=== PATIENT | female | born 1995 | race Caucasian/White ===

== ENCOUNTER 2017-03-21 15:56 | Outpatient (CLI) | payer MEDICAID ==
[~2017-03-21] VITALS: Ht 157.5 cm; Wt 78.0 kg
[2017-03-21 17:01] VITALS: BP 107/53; PULSE 67; RESP 20
[2017-03-21 17:10] VITALS: Ht 157.5 cm; Wt 78.0 kg
[2017-03-21] MEDS ORDERED: PRENAT PO (18:04)
[2017-03-21] MEDS ORDERED: METH-58 PO (18:12)
[2017-03-21] MEDS ORDERED: METH250T PO (18:12)
[2017-03-21 19:54] LABS: ADD UMIC YES; UR BILIRUBIN (Dip) 1+ (NEGATIVE); UR BLOOD (Dip) 3+ (NEGATIVE); UR CLARITY SLIGHTLY CLOUDY (CLEAR); UR COLOR YELLOW (YELLOW); UR GLUCOSE (Dip) NEGATIVE (NEGATIVE); UR KETONES (Dip) NEGATIVE (NEGATIVE); UR LEUKOCYTE ESTERASE (Dip) TRACE (NEGATIVE); UR NITRITE (Dip) NEGATIVE (NEGATIVE); UR TOTAL PROTEIN (Dip) TRACE (NEGATIVE); UR UROBILINOGEN (Dip) 0.2 E.U./dL (0.1-1.0)
--- NOTE | 2017-03-21 19:55 | TRIAGE ---
OB Triage Datetime Report Generated by CPN: 03/21/2017 19:55 Datetime: 03/21/2017 17:45 Stage of : OB Triage Maternal Assessment Level of Consciousness: Fully Conscious Headache: Denies Nausea/Vomiting: Denies RUQ Epigastric Pain: Denies Labor Evaluation Frequency: IRRIT Monitor Mode: External Duration (sec)2399: 5 SEC Quality: Mild Resting Tone [place]: Relaxed Heart Rate Monitor Mode: External US FHR Baseline Changes: No Baseline Change Variability: Moderate 6-25 bpm Accelerations: 15X15 Decelerations: None Category: Category I Pain Assessment Pain Scale: 3 Pain Presence: Constant Pain Type: Ache Pain Location: Abdomen Vaginal Exam Dilatation (cms): 0.0 Exam By: DR FOROOHAR Membrane Status: Intact Vaginal Bleeding: None Datetime: 03/21/2017 17:12 EGA: 29.6 Datetime: 03/21/2017 17:00 Time of Arrival: 03/21/2017 17:00 Arrived By: Ambulatory Arrived From: Home Chief Complaint: C/O CONSTANT LOW ABD PAIN SINCE 1300 PT COMING FROM WORK Movement: Present Rupture of Membranes: Denies Vaginal Bleeding: None Vaginal Discharge: Denies Recent Sexual Intercouse: Denies Abdominal Trauma: Not Applicable Patient Complaints: Other Provider Notified: KAILA Initial Plan: NST Maternal Assessment Level of Consciousness: Fully Conscious DTR's/Clonus: DTRs 2+ Headache: Denies Blurred Vision: No Nausea/Vomiting: Denies RUQ Epigastric Pain: Denies Facial Edema: None Labor Evaluation Frequency: IRRIT Monitor Mode: External Duration (sec)2399: 5 SEC Quality: Mild Resting Tone [place]: Relaxed Heart Rate Monitor Mode: External US FHR Baseline Changes: No Baseline Change Variability: Moderate 6-25 bpm Accelerations: 15X15 Decelerations: None Category: Category I Pain Assessment Pain Scale: 9 Pain Presence: Constant Pain Type: Ache Pain Location: Abdomen Membrane Status: Intact
[2017-03-21 20:28] LABS: ICTOTEST NEGATIVE (NEGATIVE)
[2017-03-21 20:30] LABS: UR BACTERIA FEW; UR SQUAMOUS EPITHELIAL CELL FEW
--- NOTE | 2017-03-21 21:53 | CONS ---
Date/Time of Note Date/Time of Note DATE: 03/21/17 TIME: 21:46 Consultation Date/Type/Reason Admit Date/Time March 21, 2007 Triage consult note Reason for Consultation This woman is a 21 years old 1 para 0 whose estimated date of confinement is May 31, 2017 which makes her 29 weeks and 6 days now she came to triage area complaining of lower abdominal pain Basically to rule out labor . she had a diagnosis of cholestasis made in the clinic and was placed in [facility] 3 times daily on examination her general vital signs were normal with blood pressure 107/53, pulse rate 67, respiration 20, and temperature 98.2 heart rate was about 125 Her complaint involves mostly lower abdominal pain Laboratory Tests Test 03/21/17 18:30 Urine Color YELLOW Urine Clarity SLIGHTLY CLOUDY Urine pH 5.5 Urine Specific [place] 1.025 Urine Ketones NEGATIVE Urine Nitrite NEGATIVE Urine Bilirubin 1+ Urine Ictotest NEGATIVE Urine Urobilinogen 0.2 E.U./dL Urine Leukocyte Esterase TRACE Urine Microscopic RBC 10-25/HPF Urine Microscopic WBC 2-5/HPF Urine Squamous Epithelial Cells FEW Urine Calcium Oxalate Crystals MODERATE Urine Bacteria FEW Urine Hemoglobin 3+ Urine Glucose NEGATIVE% Urine Total Protein TRACE Constitutional: No chills, No diaphoresis, No disoriented, No febrile, No improved, No no complaints, No other, No poor po, No requiring IVF, No requiring O2 Eyes: No discharge, No no complaints, No other, No pain, No redness, No visual change ENT: No bleeding, No congestion, No discharge, No dysphagia, No no complaints, No other, No pain, No sore throat Respiratory: No cough, No no complaints, No other, No pain, No pleuritic pain, No shortness of breath, No sputum, No wheezing Cardiovascular: No chest pain, No edema, No lightheadedness, No no complaints, No orthopenea, No other, No palpitations, No paroxysmal nocturnal dyspnea Gastrointestinal: No blood, No constipation, No decreased appetite, No diarrhea , No flatus, No nausea, No no complaints, No other, No pain, No passing stool, No vomiting Genitourinary: other (Pelvic examination her cervix was closed long and thick no evidence of rupture of membrane), No bleeding, No discharge, No dysuria, No flank pain, No hematuria, No no complaints Musculoskeletal: No back pain, No bone/joint pain, No neck pain, No no complaints, No other, No restricted range of motion, No swelling Skin: No bruising, No erythema, No laceration, No no complaints, No other, No pruritis, No rash, No skin lesions Additional Comments With this finding the diagnosis of false labor was made and patient was discharged home to be followed in clinic and return to the triage in case of severe abdominal pain or bleeding Social History Smoking Status: Never smoker Exam/Review of Systems Vital Signs Vitals Vital Signs Date Time Temp Pulse Resp B/P Pulse Ox O2 Delivery O2 Flow Rate FiO2 03/21/17 17:01 98.2 67 20 107/53 Room Air Results Results 24 hrs Laboratory Tests Test 03/21/17 18:30 Urine Color YELLOW Urine Clarity SLIGHTLY CLOUDY Urine pH 5.5 Urine Specific [place] 1.025 Urine Ketones NEGATIVE Urine Nitrite NEGATIVE Urine Bilirubin 1+ H Urine Ictotest NEGATIVE Urine Urobilinogen 0.2 E.U./dL Urine Leukocyte Esterase TRACE H Urine Microscopic RBC 10-25 Urine Microscopic WBC 2-5 Urine Squamous Epithelial Cells FEW Urine Calcium Oxalate Crystals MODERATE Urine Bacteria FEW Urine Hemoglobin 3+ H Urine Glucose NEGATIVE Urine Total Protein TRACE ORLANDO CORREA MD Mar 21, 2017 21:53
== END 2017-03-21 18:30 | disposition home or self-care (01) ==
LOC: OBT 15:56 → L-D 15:58 → OBT 18:30
PROVIDERS: ATTEND Obstetrics & Gynecology
DX: O26.893 Other specified pregnancy related conditions, third trimester (principal); R10.30 Lower abdominal pain, unspecified
CPT/HCPCS: 81001

== ENCOUNTER 2017-03-26 14:09 | Outpatient (CLI) | payer MEDICAID ==
[~2017-03-26] VITALS: Ht 162.6 cm; Wt 81.9 kg
[2017-03-26 14:20] VITALS: Ht 162.6 cm; Wt 81.9 kg
[2017-03-26 14:22] VITALS: BP 110/57; PULSE 87; RESP 20
[2017-03-26 15:24] LABS: ALBUMIN 3.8 g/dl (3.3-4.9); ALBUMIN/GLOBULIN RATIO 1.31; BILIRUBIN,INDIRECT 0.2 mg/dl (0-1.1); BILIRUBIN,TOTAL 0.2 mg/dl (0.2-1.3); CALCIUM 9.2 mg/dl (8.4-10.2); CREATININE 0.57 mg/dl (0.44-1.00); POTASSIUM 3.6 mmol/L (3.5-5.1); TOTAL PROTEIN 6.7 g/dl (6.1-8.1)
--- NOTE | 2017-03-26 16:10 | RADRPT ---
PROCEDURE: OB ultrasound CLINICAL INDICATION: labor TECHNIQUE: Multiple transverse and longitudinal OB images of the pelvis were obtained. The images were reviewed on a high-resolution PACS workstation. COMPARISON: None FINDINGS: A single live intrauterine is seen. The presentation is vertex. The placenta is grade 1 a nd posterior in location. No evidence of placenta abruption or previa is seen. The heart rate is 148 beats per minute. The amniotic fluid index is 12.9 cm. movement 2 tone 2 breathing 2 Amniotic fluid 2 IMPRESSION: Biophysical profile of 05/10. RPTAT: HPNM Physician Solomon Date Time Electronically viewed and signed by Physician Solomon on 03/26/2017 16:09 /
--- NOTE | 2017-03-26 16:31 | PN ---
Triage Information Date/Time Weeks of Gestation 30+ : 1 Para: 0 Hypertention: none Additional information Cholestasis of Objective Vital Signs Date Time Temp Pulse Resp B/P Pulse Ox O2 Delivery O2 Flow Rate FiO2 03/26/17 14:22 97.9 87 20 110/57 Room Air Heart Rate: 140's Results/Medications Result Diagram: 03/26/17 1445 Results 24 hrs Laboratory Tests Test 03/26/17 14:45 Sodium Level 135 Potassium Level 3.6 Chloride Level 105 Carbon Dioxide Level 23 Anion Gap 11 Blood Urea Nitrogen 8 Creatinine 0.57 Glucose Level 126 Calcium Level 9.2 Total Bilirubin 0.2 Direct Bilirubin 0.00 Indirect Bilirubin 0.2 Aspartate Amino Transf (AST/SGOT) 68 H Alanine Aminotransferase (ALT/SGPT) 128 H Alkaline Phosphatase 204 H Total Protein 6.7 Albumin 3.8 Globulin 2.90 Albumin/Globulin Ratio 1.31 Lipase 54 Assessment/Plan BP WNL BPP 8/8 NST reactive Mildly elevated LFT -->RTH in 2 days for NST BPP --->Precautions discussed with patient PAT SANTIAGO M.D. Mar 26, 2017 16:31
[2017-03-26] MEDS ORDERED: PRENAT PO (16:36)
[2017-03-26] MEDS ORDERED: URSO300C21 PO (16:36)
--- NOTE | 2017-03-26 16:50 | TRIAGE ---
OB Triage Datetime Report Generated by CPN: 03/26/2017 16:50 Datetime: 03/26/2017 16:27 Labor Evaluation Frequency: NONE Monitor Mode: External Pattern: Normal: <= 5 Contractions in 10 Minutes Resting Tone [place]: Relaxed Heart Rate FHR Baseline Rate: 145 FHR Baseline Changes: No Baseline Change Variability: Moderate 6-25 bpm Accelerations: 15X15 Decelerations: None Datetime: 03/26/2017 15:30 Labor Evaluation Frequency: NONE Monitor Mode: External Pattern: Normal: <= 5 Contractions in 10 Minutes Resting Tone [place]: Relaxed Heart Rate FHR Baseline Rate: 140 Monitor Mode: External US FHR Baseline Changes: No Baseline Change Variability: Moderate 6-25 bpm Accelerations: 15X15 Decelerations: Variable Datetime: 03/26/2017 14:59 Time of Arrival: 03/26/2017 14:10 EGA: 30.4 Arrived By: Ambulatory Arrived From: Dr. Wall Chief Complaint: FOLLOW UP ON CHOLESTASIS Movement: Present Contractions: Denies/Absent Rupture of Membranes: Denies Vaginal Bleeding: None Vaginal Discharge: Denies Abdominal Trauma: Not Applicable Patient Complaints: None Time Provider Notified: 03/25/2017 14:20 Provider Notified: DR. BRIGHT Initial Plan: EFM x2, BPP, BILE ACIDS, CMP, LIPASE Datetime: 03/26/2017 14:30 Stage of : OB Triage Assessment Type: Triage Maternal Assessment Level of Consciousness: Fully Conscious Headache: Denies Blurred Vision: No Respiratory Effort: Unlabored; Regular Rhythm; Equal Expansion Breath Sounds, Left: Clear and Equal Breath Sounds, Right: Clear and Equal Nausea/Vomiting: Denies RUQ Epigastric Pain: Denies Lower Extremities Edema: None Degree: None Upper Extremities Edema: None Degree: None Facial Edema: None Temperature Route: Oral Fall Risk Assessment History of Falling: (0) No Secondary Diagnosis: (0) No Ambulatory Aid: (0) Bedrest/Nurse Assist IV Therapy: (0) No Gait: (0) Normal/Bedrest/Immobile Mental Status: (0) Oriented to Own Ability Fall Score: 0 Fall Risk Score Definition: No Risk: No action required Pain Assessment Pain Scale: 0 Pain Presence: None/Denies Pain Type: N/A Datetime: 03/21/2017 17:12 EGA: 29.6
[2017-03-30 12:04] LABS: CHENODEOXYCHOLIC ACID 2.4 umol/L (< OR = 3.1); CHOLIC ACID 6.3 umol/L (< OR = 1.8); DEOXYCHOLIC ACID <0.5 umol/L (< OR = 2.4); TOTAL BILE ACIDS 8.7 umol/L (< OR = 6.8)
== END 2017-03-26 16:46 | disposition home or self-care (01) ==
LOC: OBT 14:09 → L-D 14:10 → OBT 16:46
PROVIDERS: ATTEND Obstetrics & Gynecology
DX: O26.893 Other specified pregnancy related conditions, third trimester (principal); Z3A.31 31 weeks gestation of pregnancy; R79.89 Other specified abnormal findings of blood chemistry; O26.613 Liver and biliary tract disorders in pregnancy, third trimester; K83.1 Obstruction of bile duct
CPT/HCPCS: 76818; 80053; 83690; 83789; Z7500; G0463

== ENCOUNTER 2017-03-28 13:44 | Outpatient (CLI) | payer MEDICAID ==
[~2017-03-28] VITALS: Ht 154.9 cm; Wt 81.4 kg
[~2017-03-28 13:44] MED LIST: PRENAT PO; URSO300C21 PO
[2017-03-28 14:37] VITALS: BP 96/50; PULSE 86; RESP 18; Ht 154.9 cm; Wt 81.4 kg
[2017-03-28] MEDS ORDERED: FER325 PO (14:37)
--- NOTE | 2017-03-28 15:48 | QN ---
Documentation Comment iup 30 weeks cholestasis vss nst reactive a/p iup 30 weeks cholestatis stable dc home STEPHANY VALENZUELA MD Mar 28, 2017 15:48
--- NOTE | 2017-03-28 15:51 | RADRPT ---
PROCEDURE: OB ultrasound for biophysical profile CLINICAL INDICATION: Cholestasis TECHNIQUE: Multiple sonographic images of the pelvis were obtained. Transabdominal view of the gr avid uterus are available for review. The images were reviewed on a PACS workstation. COMPARISON: Pelvic ultrasound 03/26/2017 FINDINGS: breathing movement = 2/2 tone = 2/2 motion = 2/2 DUSTY = 2/2 DUSTY = 13.5 cm Single live intrauterine with cardiac activity. heart rate equals 143 beats p er minute. Presentation is cephalic. The placenta is posterior. IMPRESSION: 1. Single viable intrauterine gestation. 2. Biophysical profile = 8/8. 3. DUSTY = 13.5 cm. RPTAT: KK .Luther Cannon MD, MD Date Time Electronically viewed and signed by .Luther Cannon MD, MD on 03/28/2017 15:50 .B/
--- NOTE | 2017-03-28 16:05 | TRIAGE ---
OB Triage Datetime Report Generated by CPN: 03/28/2017 16:04 Datetime: 03/28/2017 15:10 Stage of : OB Triage Maternal Assessment Level of Consciousness: Fully Conscious Labor Evaluation Frequency: NONE Monitor Mode: External Resting Tone [place]: Relaxed Heart Rate FHR Baseline Rate: 145 Monitor Mode: External US Variability: Moderate 6-25 bpm Accelerations: 15X15 Decelerations: None Pain Assessment Pain Scale: 0 Pain Goal: 3 Vaginal Exam Membrane Status: Intact Vaginal Bleeding: None Datetime: 03/28/2017 14:35 Assessment Type: Triage Maternal Assessment Level of Consciousness: Fully Conscious Headache: Denies Blurred Vision: No Respiratory Effort: Unlabored; Regular Rhythm; Equal Expansion Breath Sounds, Left: Clear and Equal Breath Sounds, Right: Clear and Equal Nausea/Vomiting: Denies RUQ Epigastric Pain: Denies Lower Extremities Edema: None Degree: None Upper Extremities Edema: None Degree: None Facial Edema: None Fall Risk Assessment History of Falling: (0) No Secondary Diagnosis: (0) No Ambulatory Aid: (0) Bedrest/Nurse Assist IV Therapy: (0) No Gait: (0) Normal/Bedrest/Immobile Mental Status: (0) Oriented to Own Ability Fall Score: 0 Fall Risk Score Definition: No Risk: No action required Datetime: 03/28/2017 14:34 Time of Arrival: 03/28/2017 13:36 EGA: 30.6 Arrived By: Ambulatory Arrived From: Home Chief Complaint: PT HERE FOR NST/BPP FOR CHOLESTASIS Movement: Present Contractions: Denies/Absent Rupture of Membranes: Denies Vaginal Bleeding: None Vaginal Discharge: Denies Recent Sexual Intercouse: Denies Abdominal Trauma: Not Applicable Patient Complaints: None Time Provider Notified: 03/28/2017 15:00 Provider Notified: [facility] Initial Plan: NST/BPP Datetime: 03/28/2017 14:21 Monitor Mode: External Monitor Mode: External US Datetime: 03/26/2017 14:59 EGA: 30.4 Datetime: 03/26/2017 14:30 Fall Score: 0 Fall Risk Score Definition: No Risk: No action required Datetime: 03/21/2017 17:12 EGA: 29.6
== END 2017-03-28 16:19 | disposition home or self-care (01) ==
LOC: OBT 13:44 → L-D 13:45 → OBT 16:19
PROVIDERS: ATTEND Obstetrics & Gynecology
DX: O26.613 Liver and biliary tract disorders in pregnancy, third trimester (principal); K83.1 Obstruction of bile duct; Z3A.30 30 weeks gestation of pregnancy
CPT/HCPCS: 76818; Z7500; G0463

== ENCOUNTER 2017-03-31 13:29 | Outpatient (CLI) | payer MEDICAID ==
[~2017-03-31] VITALS: Ht 157.5 cm; Wt 82.0 kg
[~2017-03-31 13:29] MED LIST changes: +FER325 PO
[2017-03-31 14:05] VITALS: BP 140/64; PULSE 93; RESP 16; BMI 44.7
[2017-03-31 14:06] VITALS: BP 107/59; PULSE 75; RESP 18; Ht 157.5 cm; Wt 82.0 kg
--- NOTE | 2017-03-31 14:16 | RADRPT ---
PROCEDURE: US biophysical profile. CLINICAL INDICATION: Cholestasis. TECHNIQUE: Multiple sonographic images of the uterus were obtained. The images were revi ewed on a PACS workstation. COMPARISON: 03/28/2017. FINDINGS: There is a single live intrauterine gestation. heart rate is 122 beats per minute. The position is cephalic. The placenta is posterior grade 1 with no abruption or previa. The DUSTY is 11.1 cm. (Normal = 5-20 cm.) Breathing Movement: 2 Gross Body Movement: 2 Tone: 2 Qualitative Amniotic Fluid Volume: 2 TOTAL: 8 IMPRESSION: 1. The biophysical score is 8/8. RPTAT: QQ .Nestor Love MD, MD Date Time Electronically viewed and signed by .Nestor Love MD, on 03/31/2017 14:15 .R/
--- NOTE | 2017-03-31 14:42 | TRIAGE ---
OB Triage Datetime Report Generated by CPN: 03/31/2017 14:42 Datetime: 03/31/2017 14:03 Assessment Type: Triage Maternal Assessment Level of Consciousness: Fully Conscious DTR's/Clonus: DTRs 2+; No Clonus Headache: Denies Blurred Vision: No Respiratory Effort: Unlabored; Regular Rhythm; Equal Expansion Breath Sounds, Left: Clear and Equal Breath Sounds, Right: Clear and Equal Nausea/Vomiting: Denies RUQ Epigastric Pain: Denies Lower Extremities Edema: None Degree: None Upper Extremities Edema: None Degree: None Facial Edema: None Fall Risk Assessment History of Falling: (0) No Secondary Diagnosis: (0) No Ambulatory Aid: (0) Bedrest/Nurse Assist IV Therapy: (0) No Gait: (0) Normal/Bedrest/Immobile Mental Status: (0) Oriented to Own Ability Fall Score: 0 Fall Risk Score Definition: No Risk: No action required Datetime: 03/31/2017 14:00 Time of Arrival: 03/31/2017 13:29 EGA: 31.2 Arrived By: Ambulatory Arrived From: Home Chief Complaint: NST/BPP FOR CHOLESTASIS Movement: Present Contractions: Denies/Absent Rupture of Membranes: Denies Vaginal Bleeding: None Vaginal Discharge: Denies Recent Sexual Intercouse: Denies Abdominal Trauma: Not Applicable Patient Complaints: None Provider Notified: KAILA Initial Plan: NST/BPP Datetime: 03/31/2017 13:58 Labor Evaluation Monitor Mode: External Heart Rate Monitor Mode: External US Datetime: 03/28/2017 14:35 Fall Score: 0 Fall Risk Score Definition: No Risk: No action required Datetime: 03/28/2017 14:34 EGA: 30.6 Datetime: 03/26/2017 14:59 EGA: 30.4 Datetime: 03/26/2017 14:30 Fall Score: 0 Fall Risk Score Definition: No Risk: No action required Datetime: 03/21/2017 17:12 EGA: 29.6
--- NOTE | 2017-03-31 16:22 | QN ---
Documentation Comment iup 31 weeks pt feeling well vss exam wnl us wnl a/po iup 31 weeks cholestatis stable dc home STEPHANY VALENZUELA MD Mar 31, 2017 16:22
== END 2017-03-31 15:02 | disposition home or self-care (01) ==
LOC: OBT 13:29 → L-D 13:30 → OBT 15:02
PROVIDERS: ATTEND Obstetrics & Gynecology
DX: O26.613 Liver and biliary tract disorders in pregnancy, third trimester (principal); K83.1 Obstruction of bile duct; Z3A.31 31 weeks gestation of pregnancy
CPT/HCPCS: 76818; Z7500; G0463

== ENCOUNTER 2017-04-04 09:13 | Outpatient (CLI) | payer MEDICAID ==
[~2017-04-04] VITALS: Ht 154.9 cm; Wt 81.2 kg
[2017-04-04 09:45] VITALS: Ht 154.9 cm; Wt 81.2 kg
[2017-04-04 09:46] VITALS: BP 108/56; PULSE 62; RESP 18
--- NOTE | 2017-04-04 10:30 | RADRPT ---
PROCEDURE: US OB biophysical profile. CLINICAL INDICATION: evaluation TECHNIQUE: Multiple sonographic images of the pelvis were obtained. The images were reviewed on a PACS workstation. COMPARISON: Obstetrical ultrasound from 03/31/2017 FINDINGS: There is a single viable intrauterine gestation. Cardiac activity is present with 161 beats per min liliana. There is a vertex presentation. The placenta is posterior. There is no evidence of placental abruption. There is a normal amount of amniotic fluid with an DUSTY = 11.1 cm. Biophysical profile: movement 2/2 tone 2/2. breathing 2/2 DUSTY 2/2 Total 05/10 RPTAT: AA . IMPRESSION: Normal biophysical profile. Physician Shankar Date Time Electronically viewed and signed by Physician Shankar on 04/04/2017 10:30 /
--- NOTE | 2017-04-04 10:35 | TRIAGE ---
OB Triage Datetime Report Generated by CPN: 04/04/2017 10:35 Datetime: 04/04/2017 09:41 Assessment Type: Triage Maternal Assessment Level of Consciousness: Fully Conscious DTR's/Clonus: DTRs 2+; No Clonus Headache: Denies Blurred Vision: No Respiratory Effort: Unlabored; Regular Rhythm; Equal Expansion Breath Sounds, Left: Clear and Equal Breath Sounds, Right: Clear and Equal Nausea/Vomiting: Denies RUQ Epigastric Pain: Denies Lower Extremities Edema: None Degree: None Upper Extremities Edema: None Degree: None Facial Edema: None Fall Risk Assessment History of Falling: (0) No Secondary Diagnosis: (0) No Ambulatory Aid: (0) Bedrest/Nurse Assist IV Therapy: (0) No Gait: (0) Normal/Bedrest/Immobile Mental Status: (0) Oriented to Own Ability Fall Score: 0 Fall Risk Score Definition: No Risk: No action required Datetime: 04/04/2017 09:39 Time of Arrival: 04/04/2017 09:05 EGA: 31.6 Arrived By: Ambulatory Arrived From: Home Chief Complaint: PT HERE FOR NST/BPP FOR CHOLESTASIS Movement: Present Contractions: Denies/Absent Rupture of Membranes: Denies Vaginal Bleeding: None Vaginal Discharge: Denies Recent Sexual Intercouse: Denies Abdominal Trauma: Not Applicable Patient Complaints: None Time Provider Notified: 04/04/2017 09:10 Provider Notified: KAILA Initial Plan: NST/BPP Datetime: 04/04/2017 09:35 Labor Evaluation Monitor Mode: External Heart Rate Monitor Mode: External US Datetime: 03/31/2017 14:53 Stage of : OB Triage Datetime: 03/31/2017 14:03 Fall Score: 0 Fall Risk Score Definition: No Risk: No action required Datetime: 03/31/2017 14:00 EGA: 31.2 Time Provider Notified: 03/31/2017 14:45 Datetime: 03/28/2017 14:35 Fall Score: 0 Fall Risk Score Definition: No Risk: No action required Datetime: 03/28/2017 14:34 EGA: 30.6 Datetime: 03/26/2017 14:59 EGA: 30.4 Datetime: 03/26/2017 14:30 Fall Score: 0 Fall Risk Score Definition: No Risk: No action required Datetime: 03/21/2017 17:12 EGA: 29.6
--- NOTE | 2017-04-04 11:00 | PN ---
Triage Information Date/Time 21 years old 1 para 0 31 weeks 6 days EDC May 31 complicated with cholestasis patient ursodiol 300 mg 3 times daily biophysical profile 8 out of 8 DUSTY 11 point, recommend repeat biophysical profile in 48 hours Weeks of Gestation 31 weeks 6 : 1 Para: 0 Diabetes: none Diabetes management: diet controlled Hypertention: none Additional information 31 weeks 6 day suspected cholestasis of patient on Actonel 300 mg 3 times daily Objective Vital Signs Date Time Temp Pulse Resp B/P Pulse Ox O2 Delivery O2 Flow Rate FiO2 04/04/17 09:46 98.2 62 18 108/56 96 Room Air Heart Rate: 130's Contractions: None RAQUEL BRIGHT MD Apr 04, 2017 11:00
== END 2017-04-04 11:00 | disposition home or self-care (01) ==
LOC: OBT 09:13 → L-D 09:14 → OBT 11:00
PROVIDERS: ATTEND Obstetrics & Gynecology
DX: O26.613 Liver and biliary tract disorders in pregnancy, third trimester (principal); K83.1 Obstruction of bile duct; Z3A.31 31 weeks gestation of pregnancy
CPT/HCPCS: 76818; Z7500; G0463

== ENCOUNTER 2017-05-06 16:30 | Outpatient (CLI) | payer MEDICAID ==
[~2017-05-06] VITALS: Ht 154.9 cm; Wt 81.8 kg
[2017-05-06 17:00] VITALS: Ht 154.9 cm; Wt 81.8 kg
[2017-05-06 17:01] VITALS: BP 122/57; PULSE 65; RESP 16
--- NOTE | 2017-05-06 18:08 | OPR ---
Operative Report Planned Procedure Free Text/Dictation 35 years old 3 para 2 history of 2 previous request for bilateral tubal ligation admitted at 39 weeks gestation to undergo a repeat C- section bilateral tubal ligation Procedure date May 06, 2017 Procedure(s) Repeat bilateral tubal ligation extensive adhesiolysis Performed by: RAQUEL BRIGHT MD Assisting provider: ANUPAMA LEGGETT MD Anesthesiologist: MARIANA ROWE MD Pre-procedure diagnosis 39 weeks 1 day 2 previous section request for bilateral tubal ligation Anesthesia Type: spinal Procedure Description Under satisfactory spinal [] anesthesia, the patient was prepped and draped and placed in a supine position, tilted to the left. Pfannenstiel incision was made , carried through the subcutaneous tissue. Bleeders brought under control with electrocautery. Fascia incised to the length of the incision. Rectus muscles from the fascia, divided midline. Attempt to enter into the peritoneal cavity noted extensive adhesions between the anterior uterine wall and rectus muscle making entry into the abdominal cavity extremely difficult after lengthy trial to dissect and take down the adhesions finally able to free lower segment of the uterus. Bladder flap was developed. Transverse incision was made in the lower segment of the uterus. Amniotic sac ruptured. Clear [] amniotic fluid noted. Live baby girl was delivered from occiput posterior [] Nasal oropharyngeal suction was performed. baby was handed to the team for immediate attention. The placenta was delivered manually intact. Uterine cavity was cleaned with wet sponge and drainage established. Uterus closed in 2 layers using [Monocryl #1] in continuous fashion. Bilateral tubal ligation performed by identifying the right fallopian tube fimbria and segment of the ampulla was excised suture material used #0 plain catgut was reinforced with the same suture material specimen submitted to the pathology same procedure performed for the opposite side peritoneal cavity irrigated with warm saline. Sponge, needle and instrument count reported to be correct. Abdominal peritoneum closed with 2-0 chromic catgut [] continuously. Rectus muscle approximated with [2-0 chromic catgut. Fascia closed with [#1 PDS subcutaneous tissue approximated with several interrupted 2-0 chromic catgut skin closed with mehran. Estimated blood loss [700 cc]. Urine bag contained [ 200]mL of clear urine patient tolerated procedure well transferred to recovery room in good condition Post-Procedure Findings: Live Baby girl 8 and 9 Complications: None Complications Required extensive adhesiolysis Pt Condition post procedure: stable Physician Certification I, the undersigned physician, hereby certify that I have discussed the procedure described in this consent form with this patient (or the patient's legal dermatology sales representative), including: * The risk and benefits of the procedure; * Any adverse reactions that may reasonably be expected to occur; * Any alternative efficacious methods of treatment which may be medically viable ; * The potential problems that may occur during recuperation; * Potential for blood transfusion and associated risks/benefits; and * Any research or economic interest I may have regarding this treatment. I further certify that the patient/legally responsible person was encouraged to ask question and that all questions were answered. RAQUEL BRIGHT MD May 06, 2017 18:04
--- NOTE | 2017-05-06 18:08 | TRIAGE ---
OB Triage Datetime Report Generated by CPN: 05/06/2017 18:08 Datetime: 05/06/2017 17:46 Labor Evaluation Pattern: Normal: <= 5 Contractions in 10 Minutes Resting Tone [place]: Relaxed Contraction Comments: no uc Heart Rate FHR Baseline Rate: 125 Monitor Mode: External US Variability: Moderate 6-25 bpm Accelerations: 15X15 Decelerations: None Category: Category I Datetime: 05/06/2017 17:29 Labor Evaluation Pattern: Normal: <= 5 Contractions in 10 Minutes Resting Tone [place]: Relaxed Contraction Comments: no uc Heart Rate FHR Baseline Rate: 125 Monitor Mode: External US Variability: Moderate 6-25 bpm Accelerations: 15X15 Decelerations: None Category: Category I Pain Assessment Pain Presence: None/Denies Pain Type: N/A Datetime: 05/06/2017 17:07 Assessment Type: Triage Maternal Assessment Level of Consciousness: Fully Conscious DTR's/Clonus: DTRs 2+; No Clonus Headache: Denies Blurred Vision: No Respiratory Effort: Unlabored; Regular Rhythm; Equal Expansion Breath Sounds, Left: Clear and Equal Breath Sounds, Right: Clear and Equal Nausea/Vomiting: Denies RUQ Epigastric Pain: Denies Lower Extremities Edema: None Degree: None Upper Extremities Edema: None Degree: None Facial Edema: None Fall Risk Assessment History of Falling: (0) No Secondary Diagnosis: (0) No Ambulatory Aid: (0) Bedrest/Nurse Assist IV Therapy: (0) No Gait: (0) Normal/Bedrest/Immobile Mental Status: (0) Oriented to Own Ability Fall Score: 0 Fall Risk Score Definition: No Risk: No action required Datetime: 05/06/2017 17:05 Time of Arrival: 05/06/2017 16:30 EGA: 36.3 Arrived By: Ambulatory Arrived From: Other Unit in Hospital Chief Complaint: PT. came to ob triage from nst clinic for extended efm due to questionable varibl e decels Movement: Present Rupture of Membranes: Denies Vaginal Bleeding: None Vaginal Discharge: Denies Recent Sexual Intercouse: Denies Abdominal Trauma: Not Applicable Patient Complaints: None Time Provider Notified: 05/06/2017 17:28 Provider Notified: Datetime: 04/04/2017 09:41 Fall Score: 0 Fall Risk Score Definition: No Risk: No action required Datetime: 04/04/2017 09:39 EGA: 31.6 Time Contractions Began: 04/04/2017 11:00 Datetime: 03/31/2017 14:03 Fall Score: 0 Fall Risk Score Definition: No Risk: No action required Datetime: 03/31/2017 14:00 EGA: 31.2 Datetime: 03/28/2017 14:35 Fall Score: 0 Fall Risk Score Definition: No Risk: No action required Datetime: 03/28/2017 14:34 EGA: 30.6 Datetime: 03/26/2017 14:59 EGA: 30.4 Datetime: 03/26/2017 14:30 Fall Score: 0 Fall Risk Score Definition: No Risk: No action required Datetime: 03/21/2017 17:12 EGA: 29.6
== END 2017-05-06 18:00 | disposition home or self-care (01) ==
LOC: OBT 16:30 → L-D 16:31 → OBT 18:00
PROVIDERS: ATTEND Obstetrics & Gynecology
DX: Z34.93 Encounter for supervision of normal pregnancy, unspecified, third trimester (principal); Z3A.36 36 weeks gestation of pregnancy
CPT/HCPCS: G0463

== ENCOUNTER 2017-05-07 09:39 | Outpatient (CLI) | payer MEDICAID ==
[~2017-05-07] VITALS: Ht 154.9 cm; Wt 81.8 kg
[2017-05-07 09:59] VITALS: BP 106/54; PULSE 82; RESP 16; Ht 154.9 cm; Wt 81.8 kg
--- NOTE | 2017-05-07 11:02 | RADRPT ---
PROCEDURE: US OB biophysical profile. CLINICAL INDICATION: decreased movements, pain TECHNIQUE: Multiple sonographic images of the pelvis were obtained. The images were reviewed on a PACS workstation. COMPARISON: 04/04/17 FINDINGS: There is a single viable intrauterine gestation. Cardiac activity is present with 144 beats per min liliana. There is a vertex presentation. The placenta is posterior. There is no evidence of placental abruption. There is a normal amount of amniotic fluid with an DUSTY = 11.8 cm. Biophysical profile: movement 2/2 tone 2/2. breathing 2/2 DUSTY 2/2 Total 05/10 RPTAT: AA . IMPRESSION: Normal biophysical profile. . .Ammon Quiroz MD, MD Date Time Electronically viewed and signed by .Ammon Quiroz MD, MD on 05/07/2017 11:01 .S/
--- NOTE | 2017-05-07 11:03 | RADRPT ---
PROCEDURE: US OB. CLINICAL INDICATION: Size and dates TECHNIQUE: Multiple sonographic images of the pelvis and gravid uterus were obtained. The images were reviewed on a PACS workstation. COMPARISON: 04/06/17 FINDINGS: There is a single viable intrauterine gestation. Cardiac activity is present with 146 beats per min liliana. There is a vertex presentation. The placenta is posterior. There is no evidence for an abruption or placenta previa. Measurements were made in order to determine age. The results are as follows: BPD =8.3 cm HC =32.2 cm AC =29.5 cm FL =6.5 cm Estimated gestational age of approximately 34 weeks and 1 day based on ultrasound measurements. Clinical age: 36 weeks and 4 days. The estimated date of delivery is 06/17/2017, based on ultrasound measurements. The EFW = 2267 g, 3.6%, based on LMP age. RPTAT: AA IMPRESSION: Single viable intrauterine gestation of approximately 34 weeks and 1 day based on ultrasound measur ements. Small than clinical age by 2.5 weeks. .Ammon Quiroz MD, MD Date Time Electronically viewed and signed by .Ammon Quiroz MD, on 05/07/2017 11:03 .S/
--- NOTE | 2017-05-07 11:42 | CONS ---
Date/Time of Note Date/Time of Note DATE: 05/07/17 TIME: 11:25 Consultation Date/Type/Reason Admit Date/Time May 07, 2017 OB triage consult Reason for Consultation This patient is a 21 years old 1 para 0 with estimated date of confinement of May 31, 2017 which makes her 36 weeks and 4 days . She developed cholestasis of during this and is under care in perinatology with NSTs and BPP . .. She had an slight abnormality of heart tracing yesterday in the clinic for this reason she was sent here for further evaluation and to do NST and biophysical profile . Her lab work other than bile acids are normal. her blood type O+ hepatitis B surface antigen and HIV RPR GBS chlamydia and gonorrhea were all negative . . On examination she is a well-developed well-nourished lady near term. Her general vital signs are normal with blood pressure of 106/54, pulse rate 82 respirations 16,, temperature 97.9, and oxygen saturation 100% in room temperature. heart tones are around 130 on the tracing heart activity is normal and reactive with good variability and acceleration no deceleration noted. Constitutional: No chills, No diaphoresis, No disoriented, No febrile, No improved, No no complaints, No other, No poor po, No requiring IVF, No requiring O2 Eyes: other (No evidence of jaundice at this time), No discharge, No no complaints, No pain, No redness, No visual change ENT: No bleeding, No congestion, No discharge, No dysphagia, No no complaints, No other, No pain, No sore throat Respiratory: No cough, No no complaints, No other, No pain, No pleuritic pain, No shortness of breath, No sputum, No wheezing Cardiovascular: No chest pain, No edema, No lightheadedness, No no complaints, No orthopenea, No other, No palpitations, No paroxysmal nocturnal dyspnea Gastrointestinal: other (No hepatosplenomegaly pelvic exam was not performed due to the fact that she did not have any contractions), No blood, No constipation, No decreased appetite, No diarrhea, No flatus, No nausea, No no complaints, No pain, No passing stool, No vomiting Genitourinary: No bleeding, No discharge, No dysuria, No flank pain, No hematuria, No no complaints, No other Musculoskeletal: No back pain, No bone/joint pain, No neck pain, No no complaints, No other, No restricted range of motion, No swelling Skin: other (No erythema of the palm of the hand or the sole of the feet), No bruising, No erythema, No laceration, No no complaints, No pruritis, No rash, No skin lesions Neurologic: No confusion, No dizziness, No focal-weakness, No headache, No no complaints, No other, No seizure, No syncope Endocrine: other (Knee-jerk reflexes normal) Additional Comments On ultrasound study the report is a single viable intrauterine gestation with cardiac activity of 146 bpm in vertex presentation no evidence of placenta previa at this stage the reported gestational age is 36 weeks and 4 days by ultrasound estimated weight is 2267 g which is 36 percentile this is very low point The amniotic fluid index was 11.8 and the biophysical was reported 05/10 Disposition: She is discharged home with instruction to the kick count and to attend her obstetricians office as well as the perinatology for continued monitoring she will undergo delivery in about 3-4 days Social History Smoking Status: Never smoker Exam/Review of Systems Vital Signs Vitals Vital Signs Date Time Temp Pulse Resp B/P Pulse Ox O2 Delivery O2 Flow Rate FiO2 05/07/17 09:59 97.9 82 16 106/54 100 Room Air ORLANDO CORREA MD May 07, 2017 11:35
--- NOTE | 2017-05-07 11:43 | TRIAGE ---
OB Triage Datetime Report Generated by CPN: 05/07/2017 11:43 Datetime: 05/07/2017 11:00 Level of Consciousness: Fully Conscious DTR's/Clonus: DTRs 2+; No Clonus Headache: Denies Blurred Vision: No Respiratory Effort: Unlabored; Regular Rhythm; Equal Expansion Breath Sounds, Left: Clear and Equal Breath Sounds, Right: Clear and Equal Nausea/Vomiting: Denies RUQ Epigastric Pain: Denies Facial Edema: None History of Falling: (0) No Secondary Diagnosis: (0) No Ambulatory Aid: (0) Bedrest/Nurse Assist IV Therapy: (0) No Gait: (0) Normal/Bedrest/Immobile Mental Status: (0) Oriented to Own Ability Fall Score: 0 Fall Risk Score Definition: No Risk: No action required Datetime: 05/07/2017 10:03 Stage of : OB Triage Assessment Type: Triage Level of Consciousness: Fully Conscious DTR's/Clonus: DTRs 2+; No Clonus Headache: Denies Blurred Vision: No Respiratory Effort: Unlabored; Regular Rhythm; Equal Expansion Breath Sounds, Left: Clear and Equal Breath Sounds, Right: Clear and Equal Nausea/Vomiting: Denies RUQ Epigastric Pain: Denies Lower Extremities Edema: Bilateral Lower Extremities Degree: 1+ Upper Extremities Edema: None Degree: None Facial Edema: None Temperature Route: Axillary History of Falling: (0) No Secondary Diagnosis: (0) No Ambulatory Aid: (0) Bedrest/Nurse Assist IV Therapy: (0) No Gait: (0) Normal/Bedrest/Immobile Mental Status: (0) Oriented to Own Ability Fall Score: 0 Fall Risk Score Definition: No Risk: No action required Pain Scale: 0 Pain Presence: None/Denies Pain Type: N/A Datetime: 05/07/2017 10:02 Time of Arrival: 05/07/2017 09:32 EGA: 36.4 Arrived By: Ambulatory Arrived From: Home Chief Complaint: follow nst/ bpp for cholestasis Movement: Present Contractions: Denies/Absent Rupture of Membranes: Denies Vaginal Bleeding: None Vaginal Discharge: Denies Recent Sexual Intercouse: Denies Abdominal Trauma: Not Applicable Time Provider Notified: 05/07/2017 11:15 Provider Notified: dr. gorman Initial Plan: bpp, efw Datetime: 05/06/2017 17:05 Initial Plan: extend efm
--- NOTE | 2017-05-08 02:49 | NSTRPT ---
NST Information Datetime Report Generated by CPN: 05/08/2017 02:48 Datetime: 05/06/2017 14:32 NST Information EGA: 36.3 Test Number: 9 Time on Monitor: 05/06/2017 14:51 Time off Monitor: 05/06/2017 16:10 NST Duration (Min): 79 Reason for NST: Cholestasis Test and Monitor Explained: Monitor Explained; Test Explained; Verbalized Understanding; Breastfee ding Info Given Pulse: 65 Resp: 20 SBP: 120 DBP: 67 Test Evaluation NST Interventions: None Patient States Movement: Present Contraction Frequency: none FHR Baseline : 145 Variability: Moderate 6-25bpm Accelerations: 15X15 Decelerations: Variable FHR Category: Category II NST Results: Non-Reactive Comments: PT TO U/S. DUSTY 10.2cm, cephalic EFM on FHR with variable decels. Pt without complaint. Strip reviewed by Dr. Johnson, recommendati on is to send pt to OB-TRG for extended monitoring. Dr. Oro called. Report given to S. Layn e OB-TRG RN. Explained to pt plan of care. pt states understanding. 1620-Pt to hospital as ordered. Follow up NST appointment given. Kick Count instructions reviewed. Pt states understanding. No further questions asked at this time. Comments: PT TO U/S. DUSTY 10.2cm, cephalic. EFM on FHR with variable decels. Pt without complaint. Electronically Signed By E-Signature: with User ID: [id number] Datetime: 04/28/2017 10:11 NST Information EGA: 35.2 NST Duration (Min): 24 Datetime: 04/26/2017 09:58 NST Information EGA: 35.0 NST Duration (Min): 27 Datetime: 04/22/2017 11:25 NST Information EGA: 34.3 NST Duration (Min): 26 Datetime: 04/19/2017 13:00 NST Information EGA: 34.0 NST Duration (Min): 24 Datetime: 04/15/2017 13:30 NST Information EGA: 33.3 NST Duration (Min): 35 Datetime: 04/12/2017 13:50 NST Information EGA: 33.0 NST Duration (Min): 24 Datetime: 04/08/2017 13:39 NST Information EGA: 32.3 NST Duration (Min): 20 Datetime: 04/06/2017 14:40 NST Information EGA: 32.1 NST Duration (Min): 30
== END 2017-05-07 11:31 | disposition home or self-care (01) ==
LOC: OBT 09:39 → L-D 09:41 → OBT 11:31
PROVIDERS: ATTEND Obstetrics & Gynecology
DX: O76 Abnormality in fetal heart rate and rhythm complicating labor and delivery (principal); O26.613 Liver and biliary tract disorders in pregnancy, third trimester; K83.1 Obstruction of bile duct; Z3A.36 36 weeks gestation of pregnancy
CPT/HCPCS: 76815; 76818; Z7500; G0463

== ENCOUNTER 2017-05-10 15:14 | Inpatient (IN) | payer MEDICAID ==
[~2017-05-10] VITALS: Ht 154.9 cm; Wt 81.8 kg
[2017-05-10] MEDS ORDERED: OXYTOCIN 30 UNITS/LR 500 ML IV PRN (17:30)
[2017-05-10] MEDS ORDERED: LIDOCAINE 1% (MPF) 30 ML INJ INJ PRN (17:30)
[2017-05-10] MEDS ORDERED: OXYTOCIN 30 UNITS/LR 500 ML IV SCH ×2 (17:30)
[2017-05-10] MEDS ORDERED: METHYLERGONOVINE 0.2 MG INJ IM PRN (17:30)
[2017-05-10] MEDS ORDERED: MISOPROSTOL 200 MCG TAB PR PRN (17:30)
[2017-05-10] MEDS ORDERED: DINOPROSTONE 10 MG VAG SUPP VAG ONE (17:30)
[2017-05-10] MEDS ORDERED: CARBOPROST 250 MCG INJ IM PRN (17:30)
[2017-05-10] MEDS ORDERED: IBUPROFEN 600 MG TAB PO PRN (17:30)
--- NOTE | 2017-05-10 18:11 | RADRPT ---
PROCEDURE: US biophysical profile. CLINICAL INDICATION: Cholestasis. well-being. TECHNIQUE: Multiple sonographic images of the uterus were obtained. The images were revi ewed on a PACS workstation. COMPARISON: 05/07/2017. FINDINGS: There is a single live intrauterine gestation. heart rate is 138.9 beats per minute. The position is cephalic. The placenta is posterior, grade 2. The DUSTY is 11.0 cm. Breathing Movement: 2 Gross Body Movement: 2 Tone: 2 Qualitative Amniotic Fluid Volume: 2 TOTAL: 8 IMPRESSION: 1. Single viable intrauterine gestation. 2. Biophysical profile = 05/10. 3. DUSTY = 11.0 cm. RPTAT: AA .Jennifer Guzmán MD, MD Date Time Electronically viewed and signed by .Jennifer Guzmán MD, MD on 05/10/2017 18:11 .N/
--- NOTE | 2017-05-10 18:16 | RADRPT ---
PROCEDURE: US OB. CLINICAL INDICATION: Cholestasis. . TECHNIQUE: Multiple sonographic images of the pelvis were obtained. Transabdominal imaging only w as performed. The images were reviewed on a PACS workstation. COMPARISON: 05/07/2017. FINDINGS: There is a single viable intrauterine gestation. Cardiac activity is present with 139 beats per min liliana. There is a vertex presentation. Measurements were made in order to determine age. The results are as follows: BPD = 8.47 cm HC = 31.18 cm AC = 34.32 cm FL = 7.23 cm Estimated gestational age of approximately 36 weeks and 1 day. The estimated date of delivery is 06/06/2017, based on ultrasound measurements. The EFW = 3105 g, 58 percentile. The placenta is posterior, grade 2. There is a normal amount of amniotic fluid with an DUSTY = 11.0. IMPRESSION: 1. Single viable intrauterine gestation of approximately 36 weeks and 1 day. 2. The estimated date of delivery is 06/06/2017. RPTAT: AA .Jennifer Guzmán MD, MD Date Time Electronically viewed and signed by .Jennifer Guzmán MD, MD on 05/10/2017 18:16 .N/
[2017-05-10 18:39] LABS: BASOPHILS % 0.2 % (0.0-2.0); EOSINOPHILS # 0.1 10^3/ul (0.0-0.5); EOSINOPHILS % 0.5 % (0.0-7.0); HEMATOCRIT 36.6 % (37.0-47.0); LYMPHOCYTES % 18.7 % (18.0-55.0); MEAN CORPUSCULAR HEMOGLOBIN 33.7 pg (29.0-33.0); MEAN CORPUSCULAR HGB CONC 35.5 g/dl (32.0-37.0); MEAN CORPUSCULAR VOLUME 94.8 fl (72.0-104.0); MEAN PLATELET VOLUME 9.5 fl (7.4-10.4); MONOCYTE # 0.9 10^3/ul (0.3-0.9); MONOCYTES % 8.7 % (0.0-13.0); NEUTROPHIL # 7.7 10^3/ul (1.6-7.5); NEUTROPHILS % 71.2 % (30.0-74.0); PLATELET COUNT 284 10^3/UL (140-415); RED BLOOD COUNT 3.86 10^6/ul (4.20-5.40); RED CELL DISTRIBUTION WIDTH 12.2 % (11.5-14.5); WHITE BLOOD COUNT 10.8 10^3/ul (4.8-10.8)
[2017-05-10] MEDS: LACTATED RINGER'S 1,000 ML IV SCH (18:39)
[2017-05-10 18:41] VITALS: BP 114/62; PULSE 67; RESP 20
[2017-05-10 18:46] VITALS: Ht 154.9 cm; Wt 81.8 kg
[2017-05-10 19:00] LABS: INR 0.82; PROTIME 11.3 Sec (12.2-14.2); PT RATIO 0.9
[2017-05-10 19:01] LABS: PARTIAL THROMBOPLASTIN TIME 29.7 Sec (25.0-35.0)
--- NOTE | 2017-05-10 20:48 | HP ---
Date/Time of Note Date/Time of Note DATE: 05/10/17 TIME: 20:44 OB - History Hx of Present Free Text/Dictation 21 years old female 1 para 0 EDC May 31, 2017 admitted to [facility] at 37 weeks gestation for induction of labor due to stasis of Chief Complaint: 37 weeks complicated with cholestasis Estimated Due Date: May 31, 2017 : 1 Para: 0 Care: Good Care Ultrasounds: Normal mid trimester US Obstetrical Complications: Other (Stasis of ) Past Family/Social History * Past Medical, Surgical, Family and Obstetric Histories reviewed from chart. Rubella: immune RPR/VDRL: Negative GBS Status: Negative HBsAG: Negative OB Admission Exam Vital Signs Vital Signs Vital Signs Date Time Temp Pulse Resp B/P Pulse Ox O2 Delivery O2 Flow Rate FiO2 05/10/17 18:41 98.0 67 20 114/62 98 Room Air Physical Exam HEENT: WNL Heart: Rhythm Normal Lungs: Clear, Equal Extremities: Normal Reflexes: Normal Cervical Dilatation: None Effacement: 25% Membranes: Intact Heart Rate: 120's Accelerations: Accelerations Present Decelerations: No Decelerations Contractions on Admission: None Last 72 hours Lab Results CBC & BMP 05/10/17 18:05 OB Assessment/Plan Reason for admission: other (37 weeks gestation suspected cholestasis admitted for induction of labor) Plan: Induction RAQUEL BRIGHT MD May 10, 2017 20:48
[2017-05-10] MEDS ORDERED: LACTATED RINGER'S 1,000 ML IV PRN (23:00)
[2017-05-11] MEDS: LACTATED RINGER'S 1,000 ML IV SCH ×4 (00:30→18:47)
[2017-05-11] MEDS: BUTORPHANOL 2 MG INJ IV PRN ×2 (01:50→08:56)
[2017-05-11] MEDS ORDERED: OXYTOCIN 30 UNITS/LR 500 ML IV SCH (08:30)
[2017-05-11] MEDS ORDERED: MINERAL OIL LIGHT 10 ML VIAL TOP ONE (08:30)
[2017-05-11] MEDS ORDERED: DIPHENHYDRAMINE 50 MG INJ IV PRN (13:30)
[2017-05-11] MEDS ORDERED: ONDANSETRON 4 MG INJ IV PRN (13:30)
[2017-05-11] MEDS ORDERED: EPHEDrine SULFATE 50 MG/5 ML SYG IV PRN (13:30)
[2017-05-11] MEDS ORDERED: NALOXONE (0.4 MG/ML) INJ IV PRN (13:30)
[2017-05-11] MEDS: FENTAnyl 2MCG/ML-ROPIV 0.2% 100 ML BAG EPI SCH (21:12)
[2017-05-12] MEDS: LACTATED RINGER'S 1,000 ML IV SCH ×2 (01:39→05:02)
[2017-05-12] MEDS: FENTAnyl 2MCG/ML-ROPIV 0.2% 100 ML BAG EPI SCH (03:16)
[2017-05-12] MEDS ORDERED: MINERAL OIL LIGHT 10 ML VIAL TOP ONE (04:00)
[2017-05-12] MEDS ORDERED: GENTAMICIN 80 MG/NS (PMX) 50 ML IVPB SCH (06:30)
[2017-05-12] MEDS ORDERED: AMPICILLIN 2 GM/NS (PMX) 100 ML IVPB ONE (06:30)
--- NOTE | 2017-05-12 06:47 | PN ---
Date/Time of Note Date/Time of Note DATE: 05/12/17 TIME: 06:46 OB Subjective Subjective Subjective Patient comfortable with epidural Exam complete/complete +2 Category 2 tracing Variable deceleration Continue pushing Patient had a fever 100.9 Start ampicillin and gentamicin Anticipate MORGAN SANCHEZ MD May 12, 2017 06:47
[2017-05-12] MEDS ORDERED: CLINDAMYCIN 900 MG/D5W (PMX) 50 ML IVPB SCH (08:55)
[2017-05-12] MEDS ORDERED: AMPICILLIN 2 GM/NS (PMX) 100 ML IVPB SCH (09:00)
--- NOTE | 2017-05-12 09:43 | LDN ---
Date/Time of Note Date/Time of Note DATE: 05/12/17 TIME: 09:37 Delivery Summary Normal spontaneous vaginal delivery of a baby boy from MICAH position With large caput shoulders delivered without any difficulty rest of the baby's body followed cord clamped after stopped pulsation placenta spontaneous expulsion inspected complete blood loss 250 cc patient sustained first-degree vaginal laceration repaired with 3-0 chromic catgut Weeks of Gestation 37 weeks 2 days Placenta Delivered: Spontaneously Meconium: none Episiotomy: No Perineal laceration: 1 Laceration repair: First-degree vaginal laceration repaired with 3-0 chromic catgut Anesthesia type: Epidural Sponge & Needle done & correct: Yes All needle counts correct: Yes Any foreign bodies felt in the: No Problems: Infant Delivery Information Sex Sex: male Apgars 1 Minute: 9 5 Minute: 9 Suctioning Nose & mouth suctioned at ivy: Yes Delee suction performed: No Umbilical Cord Umbilical cord with: 3 Vessels Cord presentations: nuchal cord Nuchal cord present X: 2 Cord Blood was obtained: Yes RAQUEL BRIGHT MD May 12, 2017 09:42
[2017-05-12 11:25] VITALS: BP 133/64; PULSE 59; RESP 18
[2017-05-12] MEDS ORDERED: OXYCODONE/ASPIRIN (4.88/325) TAB PO PRN ×2 (13:00)
[2017-05-12] MEDS ORDERED: ACETAMINOPHEN 325 MG TAB PO PRN (13:00)
[2017-05-12] MEDS ORDERED: ONDANSETRON 4 MG INJ IV PRN (13:00)
[2017-05-12] MEDS ORDERED: BENZOCAINE 20% 56 ML SPRAY TOP PRN (13:00)
[2017-05-12] MEDS ORDERED: WITCH HAZEL/GLYCERIN PAD PR PRN (13:00)
[2017-05-12] MEDS ORDERED: LANOLIN 7 GM TUBE TOP PRN (13:00)
[2017-05-12] MEDS ORDERED: HYDROCODONE/APAP (5/325) TAB PO PRN ×2 (13:00)
[2017-05-12] MEDS ORDERED: DIBUCAINE 1% 30 GM OINT PR PRN (13:00)
[2017-05-12] MEDS: IBUPROFEN 600 MG TAB PO SCH ×2 (13:48→17:58)
[2017-05-12] MEDS: OXYTOCIN 30 UNITS/LR 500 ML IV SCH ×2 (14:38→16:35)
[2017-05-12 16:00] VITALS: BP 118/66; PULSE 55; RESP 18
[2017-05-12 20:30] VITALS: BP 96/51; PULSE 72; RESP 18
[2017-05-12] MEDS: SENNA/DOCUSATE NA (8.6MG/50MG) TAB PO SCH (21:09)
[2017-05-13 04:00] VITALS: BP 98/52; PULSE 75; RESP 18
[2017-05-13] MEDS: IBUPROFEN 600 MG TAB PO SCH ×5 (06:00→23:31)
[2017-05-13 08:15] VITALS: BP 96/51; PULSE 68
[2017-05-13] MEDS: SENNA/DOCUSATE NA (8.6MG/50MG) TAB PO SCH ×2 (09:00→21:00)
[2017-05-13 09:36] LABS: BASOPHILS % 0.2 % (0.0-2.0); EOSINOPHILS # 0.1 10^3/ul (0.0-0.5); EOSINOPHILS % 0.6 % (0.0-7.0); HEMATOCRIT 33.2 % (37.0-47.0); HEMOGLOBIN 11.5 g/dl (12.0-16.0); LYMPHOCYTES # 2.2 10^3/ul (0.8-2.9); LYMPHOCYTES % 11.7 % (18.0-55.0); MEAN CORPUSCULAR HGB CONC 34.6 g/dl (32.0-37.0); MEAN CORPUSCULAR VOLUME 95.4 fl (72.0-104.0); MEAN PLATELET VOLUME 9.7 fl (7.4-10.4); MONOCYTE # 1.4 10^3/ul (0.3-0.9); MONOCYTES % 7.3 % (0.0-13.0); NEUTROPHIL # 15.1 10^3/ul (1.6-7.5); NEUTROPHILS % 79.4 % (30.0-74.0); PLATELET COUNT 238 10^3/UL (140-415); RED BLOOD COUNT 3.48 10^6/ul (4.20-5.40); RED CELL DISTRIBUTION WIDTH 12.6 % (11.5-14.5)
--- NOTE | 2017-05-13 10:18 | PN ---
Date/Time of Note Date/Time of Note DATE: 05/13/17 TIME: 10:17 OB Subjective Subjective Subjective day 1 Afebrile Vital signs are stable Abdomen soft Uterus firm Lochia normal Extremity normal Ambulation encouraged Laboratory Tests Test 05/13/17 08:35 White Blood Count 19.010^3/ul Red Blood Count 3.4810^6/ul Hemoglobin 11.5g/dl Hematocrit 33.2% Mean Corpuscular Volume 95.4fl Mean Corpuscular Hemoglobin 33.0pg Mean Corpuscular Hemoglobin Concent 34.6g/dl Red Cell Distribution Width 12.6% Platelet Count 15772^3/UL Mean Platelet Volume 9.7fl Neutrophils % 79.4% Lymphocytes % 11.7% Monocytes % 7.3% Eosinophils % 0.6% Basophils % 0.2% Nucleated Red Blood Cells % 0.0/100WBC Neutrophils # 15.110^3/ul Lymphocytes # 2.210^3/ul Monocytes # 1.410^3/ul Eosinophils # 0.110^3/ul Basophils # 0.010^3/ul Nucleated Red Blood Cells # 0.010^3/ul Current Medications Medications (Trade) Dose Ordered Sig/Lukas Route PRN Reason Start Time Stop Time Status Last Admin Dose Admin Lactated Ringer's (Lr) 1,000 ml @ 125 mls/hr Q8H IV 05/10/17 17:28 05/12/17 12:39 DC 05/12/17 05:02 Dinoprostone (Cervidil Vaginal Supp) 10 mg ONCE ONCE VAG 05/10/17 17:30 05/10/17 17:39 DC 05/10/17 20:15 Butorphanol Tartrate (Stadol) 2 mg Q2H PRN IV PAIN 05/10/17 17:30 05/12/17 12:39 DC 05/11/17 08:56 Lidocaine 30 ml 30 ml ONCE PRN INJ EPISIOTOMY/TEARING 05/10/17 17:30 05/12/17 12:39 DC Oxytocin/Lactated Ringer's 500 ml @ 125 mls/hr ONCE -MAY REPEAT X1 IV 05/10/17 17:30 05/12/17 12:39 DC 05/12/17 09:18 Oxytocin/Lactated Ringer's 500 ml @ 125 mls/hr ONCE IV 05/10/17 17:30 05/12/17 12:37 DC 05/12/17 09:29 Ibuprofen 600 mg 600 mg ONCE PRN PO Mild Pain (Pain Score 1-3) 05/10/17 17:30 05/12/17 12:40 DC Lactated Ringer's 1,000 ml @ 2,000 mls/hr Q30M PRN IV PRE-EPIDURAL BOLUS 05/10/17 23:00 05/12/17 12:38 DC 05/11/17 12:44 Oxytocin/Lactated Ringer's 500 ml @ 0 mls/hr ONCE PRN IV For Hemorrhage Management 05/10/17 17:30 05/12/17 12:40 DC Methylergonovine Maleate (Methergine) 0.2 mg ONCE PRN IM VAGINAL BLEEDING 05/10/17 17:30 05/12/17 12:40 DC Carboprost Tromethamine (Hemabate) 250 mcg ONCE PRN IM VAGINAL BLEEDING 05/10/17 17:30 05/12/17 12:40 DC Misoprostol 1000 mcg 1,000 mcg ONCE PRN OR VAGINAL BLEEDING 05/10/17 17:30 05/12/17 12:38 DC Oxytocin/Lactated Ringer's 500 ml @ 0 mls/hr TITRATE IV 05/11/17 08:30 05/12/17 12:38 DC 05/11/17 09:46 Mineral Oil (Muri-Lube) 20 ml ONCE ONCE TOP 05/11/17 08:30 05/11/17 08:32 DC Naloxone HCl (Narcan) 0.1 mg Q2M PRN IV FOR RESP RATE 8 OR LESS 05/11/17 13:30 05/12/17 12:38 DC Diphenhydramine HCl (Benadryl) 25 mg Q6H PRN IV ITCHING 05/11/17 13:30 05/12/17 12:38 DC Ondansetron HCl (Zofran Inj) 4 mg Q6H PRN IV NAUSEA AND/OR VOMITING 05/11/17 13:30 05/12/17 12:38 DC Fentanyl/ Ropivacaine 100 ml EPIDURAL INFUSION EPI 05/11/17 13:30 05/12/17 12:38 DC 05/12/17 03:16 Ephedrine Sulfate 5 mg PRN PRN IV BLOOD PRESSURE SUPPORT 05/11/17 13:30 05/12/17 12:38 DC Mineral Oil 10 ml 10 ml ONCE ONCE TOP 05/12/17 04:00 05/12/17 04:01 DC Ampicillin 100 ml @ 100 mls/hr ONCE ONCE IVPB 05/12/17 06:30 05/12/17 07:29 DC 05/12/17 06:18 Gentamicin Sulfate 50 ml @ 104 mls/hr Q8H IVPB 05/12/17 06:30 05/12/17 12:38 DC 05/12/17 06:58 Ampicillin 100 ml @ 100 mls/hr Q6 IVPB 05/12/17 09:00 05/12/17 12:38 DC 05/12/17 08:41 Clindamycin HCl/ Dextrose 50 ml @ 50 mls/hr Q8 IVPB 05/12/17 08:55 05/12/17 12:38 DC 05/12/17 09:05 Oxytocin/Lactated Ringer's 500 ml @ 125 mls/hr Q4H IV 05/12/17 12:35 05/12/17 18:00 DC 05/12/17 14:38 Ibuprofen (Motrin) 600 mg Q6 PO 05/12/17 13:00 05/12/17 17:58 Acetaminophen (Tylenol Tab) 650 mg Q4H PRN PO PAIN LEVEL 1-5 05/12/17 13:00 Acetaminophen/ Hydrocodone Bitart ([place] (5/325)) 1 tab Q4H PRN PO PAIN LEVEL 1-5 05/12/17 13:00 Acetaminophen/ Hydrocodone Bitart ([place] (5/325)) 2 tab Q4H PRN PO PAIN LEVEL 6-10 05/12/17 13:00 Oxycodone/Aspirin (Percodan) 1 tab Q3H PRN PO PAIN LEVEL 1-5 05/12/17 13:00 Oxycodone/Aspirin (Percodan) 2 tab Q3H PRN PO PAIN LEVEL 6-10 05/12/17 13:00 Ondansetron HCl (Zofran Inj) 4 mg Q6H PRN IV NAUSEA AND/OR VOMITING 05/12/17 13:00 Senna/Docusate Sodium (Senokot-S) 1 tab BID PO 05/12/17 21:00 05/12/17 21:09 Witch Dorota/ Glycerin (Tucks Pads) 1 pad BEDSIDE MEDICATION PRN OR HEMORRHOID/EPISIOTMY PAIN 05/12/17 13:00 05/12/17 13:48 Benzocaine (Dermoplast [place]) 1 spray BEDSIDE MEDICATION PRN TOP HEMORRHOID/EPISIOTMY PAIN 05/12/17 13:00 05/12/17 13:48 Dibucaine (Nupercainal) 1 applic BEDSIDE MEDICATION PRN OR HEMORRHOID/EPISIOTMY PAIN 05/12/17 13:00 Lanolin (Hin-U-Xrvaqj) 1 applic BEDSIDE MEDICATION PRN TOP BEDSIDE FOR [place]UGUSTO TO NIPPLES 05/12/17 13:00 05/12/17 13:48 Measles/Mumps/ Rubella Vaccine Live (Mmr Ii Vaccine) 0.5 ml ONCE ONCE SC* 05/14/17 09:00 05/14/17 09:01 RAQUEL BRIGHT MD May 13, 2017 10:18
[2017-05-13 16:00] VITALS: BP 101/62; PULSE 76; RESP 16
[2017-05-13 20:00] VITALS: BP 113/55; PULSE 73; RESP 20
[2017-05-14 04:00] VITALS: BP 119/59; PULSE 58; RESP 20
[2017-05-14] MEDS: IBUPROFEN 600 MG TAB PO SCH (06:36)
[2017-05-14 08:00] VITALS: BP 113/66; PULSE 50; RESP 18
[2017-05-14] MEDS ORDERED: MEASLES,MUMPS,RUBELLA VACCINE INJ SC* ONE (09:00)
[2017-05-14] MEDS: SENNA/DOCUSATE NA (8.6MG/50MG) TAB PO SCH (09:00)
--- NOTE | 2017-05-14 12:31 | PD.PPDC ---
HAND SHAPER Discharge Instruction Condition Patient Condition: Good Diet Diet: Resume Regular Diet Activity/Restrictions Activity: Normal Activity May Shower Follow-up Follow-up with Physician: Week/Weeks Provider Information: instructions given recommended to make appointment in 2 weeks for check Return to clinic for [facility] [employer] Instructions: Fever greater than 101 Chills Worsening abdominal pain Excessive Vaginal Bleeding More than 2 pads per hour Unable to tolerate diet OB Instructions: Breast Tenderness Depression Blurried Vision Headache Surgical Instructions: Incisional Drainage Incisional Redness RAQUEL BRIGHT MD May 14, 2017 12:31
--- NOTE | 2017-05-14 12:34 | DS ---
Date/Time of Note Date/Time of Note DATE: 05/14/17 TIME: 12:33 Discharge Summary Admission/Discharge Info Admit Date/Time May 10, 2017 at 15:14 Discharge Date/Time May 14, 2017 at 12:25 PM Discharge Diagnosis Post normal vaginal delivery day 2 Patient Condition: Good Procedures Normal vaginal delivery Hx of Present Illness , complicated with cholestasis normal vaginal delivery Hospital Course Satisfactory recovery uneventful Home Meds Reported Medications Ferrous Sulfate* (Ferrous Sulfate*) 325 Mg Tabec, 325 MG PO DAILY, TAB 03/28/17 Ursodiol* (Actigall*) 300 Mg Cap, 300 MG PO TID, #90 CAP 03/26/17 Multivit/Min/Fol Ac/Iron/Pren* ( S*) 1 Tab Tab, 1 TAB PO DAILY, TAB 03/26/17 Follow-up Plan instructions given recommended to make appointment in 2 weeks to be seen at the clinic Primary Care Provider Care Physician No Primary Time spent on discharge: < 30 minutes RAQUEL BRIGHT MD May 14, 2017 12:34
== END 2017-05-14 13:45 | disposition home or self-care (01) | DRG 775 ==
LOC: L-D 15:14 → PP1 05-12 11:13
PROVIDERS: ADMIT Obstetrics & Gynecology; ATTEND Obstetrics & Gynecology
PROC: 10E0XZZ Delivery of Products of Conception, External Approach (ICD-10-PCS; principal; 2017-05-12)
PROC: 0UQGXZZ Repair Vagina, External Approach (ICD-10-PCS; 2017-05-12)
PROC: 3E033VJ Introduction of Other Hormone into Peripheral Vein, Percutaneous Approach (ICD-10-PCS; 2017-05-12)
DX: O69.81X0 Labor and delivery complicated by cord around neck, without compression, not applicable or unspecified (principal); O70.0 First degree perineal laceration during delivery; Z3A.37 37 weeks gestation of pregnancy; Z37.0 Single live birth
CPT/HCPCS: 62319; 76815; 76818; 85025; 85610; 85730; 86592; 86900; 86901; 87340; J0290; J0595; J1580; J2590; J3010; J7120